=== PATIENT | male | born 1995 | race Caucasian/White ===

== ENCOUNTER 2017-04-09 16:16 | Emergency (ER) | payer BC ==
[2017-04-09 16:44] VITALS: BP 127/68
--- NOTE | 2017-04-09 18:02 | RAD ---
INDICATION: Left wrist pain COMPARISON: None TECHNIQUE: AP, lateral, and oblique views were obtained. FINDINGS: The bony structures, joint spaces, and soft tissues are normal for age. IMPRESSION: NEGATIVE EXAMINATION.
--- NOTE | 2017-04-09 18:18 | UC ---
Hand/Wrist HPI - HPI Summary HPI Summary: Yesterday was playing baseball and ball hit left wrist. Pain with flexion and extensionof wrist continue today. no bruising .No swelling. - History Of Current Complaint Chief Complaint: UCUpperExtremity Stated Complaint: LEFT WRIST/HAND INJURY Time Seen by Provider: 04/09/17 17:20 Hx Obtained From: Patient Onset/Duration: Sudden Onset Severity Initially: Moderate Severity Currently: Moderate Character Of Pain: Dull, Aching Aggravating Factor(s): Movement, Flexion, Extension Alleviating: Nothing Associated Signs And Symptoms: Positive: Negative Related History: Dominant Hand Left - Allergies/Home Medications Allergies/Adverse Reactions: Allergies Allergy/AdvReac Type Severity Reaction Status Date / Time Clindamycin Allergy Hives Verified 04/09/17 16:44 Home Medications: Home Medications NK [No Home Medications Reported] 04/09/17 [History Confirmed 04/09/17] PMH/Surg Hx/FS Hx/Imm Hx Previously Healthy: Yes - Surgical History Surgical History: None - Social History Alcohol Use: Occasionally Substance Use Type: None Smoking Status (MU): Never Smoked Tobacco Review of Systems Constitutional: Negative Skin: Negative Eyes: Negative ENT: Negative Respiratory: Negative Cardiovascular: Negative Gastrointestinal: Negative Genitourinary: Negative Motor: Negative Neurovascular: Negative Musculoskeletal: Arthralgia, Myalgia Neurological: Negative Psychological: Negative Is Patient Immunocompromised?: No All Other Systems Reviewed And Are Negative: Yes Physical Exam Triage Information Reviewed: Yes Appearance: Well-Appearing, No Pain Distress, Well-Nourished Vital Signs: Initial Vital Signs Temp 97.9 F 04/09/17 16:40 Pulse 54 04/09/17 16:40 Resp 14 04/09/17 16:40 BP 127/68 04/09/17 16:40 Pulse Ox 100 04/09/17 16:40 Vital Signs Reviewed: Yes Eye Exam: Normal ENT Exam: Normal ENT: Positive: Normal ENT inspection, TMs normal Dental Exam: Normal Neck exam: Normal Neck: Positive: Supple, Nontender, No Lymphadenopathy Respiratory Exam: Normal Respiratory: Positive: Chest non-tender, Lungs clear, Normal breath sounds, No respiratory distress Cardiovascular Exam: Normal Cardiovascular: Positive: RRR, No Murmur, Pulses Normal Abdominal Exam: Normal Musculoskeletal: Positive: Strength Intact, ROM Intact, No Edema, Other: - pain to left wrist dorsum with flex and extn of left wrist; no snuffbox tenderness Neurological Exam: Normal Psychological Exam: Normal Psychological: Positive: Normal Response To Family Skin Exam: Normal Hand/Wrist Course/Dx - Differential Dx/Diagnosis Differential Diagnosis/HQI/PQRI: Sprain, Strain Provider Diagnoses: LEFT WRIST SPRAIN/CONTUSION Discharge - Discharge Plan Condition: Stable Disposition: HOME Patient Education Materials: Contusion in Adults (ED), Wrist Sprain (ED) Referrals: [facility] [Outside] - If Needed Non Staff,Doctor [Primary Care Provider] -
== END 2017-04-09 18:18 | disposition home or self-care (01) ==
LOC: UCCORT 16:16
DX: S63.502A Unspecified sprain of left wrist, initial encounter (principal); S60.212A Contusion of left wrist, initial encounter; W21.03XA Struck by baseball, initial encounter; Y92.9 Unspecified place or not applicable; Z88.3 Allergy status to other anti-infective agents
CPT/HCPCS: 99202; G0463